=== PATIENT | female | born 1970 | race Caucasian/White ===

== ENCOUNTER 2020-05-26 09:00 | Day surgery (SDC) | payer OTHER ==
[2020-05-26] MEDS ORDERED: Rocuronium Bromide 10 MG/ML (10ML VIAL) ONE (09:18)
[2020-05-26] MEDS ORDERED: Ondansetron PF 4 MG/2 ML Vial ONE (09:18)
[2020-05-26] MEDS ORDERED: PROPOFOL 200 MG/20 ML VIAL ONE (09:18)
[2020-05-26] MEDS ORDERED: ePHEDrine 50 MG/ML VIAL ONE (09:18)
[2020-05-26] MEDS ORDERED: Lidocaine 1% PF 5 ML VIAL ONE (09:18)
[2020-05-26] MEDS ORDERED: Dexamethasone 20 MG/5 ML VIAL ONE (09:18)
[2020-05-26] MEDS ORDERED: Glycopyrrolate 0.2 MG/ML 5 ML SYRINGE ONE (09:18)
[2020-05-26] MEDS ORDERED: Bupivacaine 0.25% HCL 30 ML VIAL ONE (09:24)
[2020-05-26] MEDS ORDERED: XYLOCAINE 2%-EPI 1:100,000 20 ML VIAL ONE (09:24)
[2020-05-26] MEDS ORDERED: Famotidine/PF 20 mg/2ml Vial ONE (09:43)
[2020-05-26] MEDS ORDERED: Scopolamine 1.5 mg/72 hour Patch ONE (09:43)
[2020-05-26] MEDS ORDERED: Ketorolac Tromethamine 30 MG/ML VIAL ONE (09:43)
[2020-05-26] MEDS ORDERED: Midazolam HCl 2 mg/2 ml Vial ONE (09:46)
[2020-05-26] MEDS ORDERED: Fentanyl 100 MCG/2 ML VIAL ONE (09:46)
[2020-05-26] MEDS ORDERED: Dexmedetomidine 200 MCG/2 ML VIAL ONE (09:46)
--- NOTE | 2020-05-26 12:10 | HP ---
HISTORY: A 49-year-old female presents with right lower quadrant pain since , 2 days ago. The patient presents to [facility] emergency room yesterday, undergoing evaluation. White count 7 and hemoglobin 16. Comprehensive metabolic profile unremarkable. Bilirubin 1.5. AST and ALT normal. Alkaline phosphatase 142. Rapid COVID negative. She underwent a CAT scan and a chest x-ray. CAT scan of the abdomen and pelvis at [place] revealed 8 mm appendix, equivocal haziness, possible appendicitis, mild splenomegaly, some fluid-filled loops of small bowel without dilatation, spinal stenosis severe at L4-5. The patient was hospitalized in [place]. I was given the report on telephone that her CAT scan revealed changes of acute appendicitis, not equivocal. The patient on arrival to this facility this morning transferred from [place] reveals that she has had some mild right lower quadrant tenderness and pain and persistent mild tenderness on exam with slight guarding. Personal review of the CAT scan reveals that she has mild constipation, certainly not significant to account for her pain. Plan is for a laparoscopic video appendectomy. She understands the risks and benefits, consents. ALLERGIES: NONE. SOCIAL HISTORY: Tobacco, none. Alcohol, none. PAST SURGICAL HISTORY: Cholecystectomy, bilateral tubal ligation, total abdominal hysterectomy without oophorectomy, abdominal approach, ovarian cystectomy prior. PAST MEDICAL HISTORY: Rhu-[id number]-ulyiereqo diabetes mellitus, on metformin; history of lupus; bipolar illness; anxiety; and fibromyalgia. FAMILY HISTORY: Her father had a heart cardiac murmur. No significant family history. REVIEW OF SYSTEMS: Ten-point review of systems unremarkable. She is , lives with a significant other. PHYSICAL EXAMINATION: VITAL SIGNS: 122/64, 99 degrees, 95%. 95 kg. HEAD, EARS, EYES, NOSE, AND THROAT: Unremarkable. Sclerae nonicteric. Skin nonjaundiced. LUNGS: Clear to auscultation. Neurologically intact. CARDIAC: Regular rate and rhythm without murmur or gallop. ABDOMEN: Soft, obese. No hernias evident. Tenderness in right lower quadrant with mild guarding. EXTREMITIES: No ankle edema. Palpable pulses. No lymphadenopathy. ASSESSMENT AND PLAN: 1. Abdominal pain, suspect appendicitis, equivocal, inflammatory changes on CAT scan with her history and persistent tenderness. We would recommend laparoscopic video appendectomy. Risks and benefits of the procedure and consents obtained. 2. Significant spinal stenosis. She may need to seek outpatient attention to this. 3. Diabetes mellitus. 4. Lupus. 5. Fibromyalgia. 6. Nxk-[id number]-jlkjdgbmr diabetes mellitus. 7. Hypertension. Job ID: [id number]
--- NOTE | 2020-05-27 17:01 | OP ---
DATE OF PROCEDURE: 05/26/2020 PREOPERATIVE DIAGNOSES: 1. Acute appendicitis. 2. Spinal stenosis. POSTOPERATIVE DIAGNOSES: 1. Normal-appearing appendix. 2. Spinal stenosis. PROCEDURE PERFORMED: Laparoscopic video appendectomy. FINDINGS: Laparoscopic evaluation with normal terminal ileum without Meckel's, normal ovaries for age, hysterectomy status, history of cholecystectomy. No gross abnormalities noted. ANESTHESIA: General, local 0.5% Marcaine 30 mL mixed with 1% Xylocaine with epinephrine 20 mL. DESCRIPTION OF PROCEDURE: The patient was taken to the operating room, where under general anesthesia, Kang catheter was placed at the beginning of the procedure and removed at the end. Abdomen was prepared with ChloraPrep and draped in routine fashion. Local anesthetic mixture was infiltrated into the skin and subcutaneous tissue about each port site. Infraumbilical incision made, pneumoperitoneum to 15 mmHg obtained with a Veress needle, replacement with a 5 port laparoscope inserted. Remainder of ports placed under laparoscopic visualization and right lateral subcostal incision was made and a 5 port placed. Suprapubic incision was made and a 12 port placed. Mesoappendix was taken down with the LigaSure. The stump of the appendix divided at the cecal stump with Endo-TARIQ blue load stapler. Cecal stump hemostasis gained with clips. Good hemostasis noted. Appendix removed and submitted to Pathology. Appendix looked to be normal. Terminal ileum evaluated. Meckel diverticulum not present. The patient is status post hysterectomy. Ovaries normal for her age. Tubes normal. History of cholecystectomy. No gross abnormalities noted. Suprapubic fascia was approximated with 0 Vicryl with a GraNee needle under laparoscopic visualization. The irrigant and pneumoperitoneum evacuated. All instruments were removed and all skin incisions were approximated with subdermal 4-0 Monocryl and [place] glue applied. The patient was recommended to seek neurosurgical attention for spinal stenosis. If clinically significant, we will discuss with her and discuss this postoperatively. Job ID: [id number]
== END 2020-05-26 12:40 | disposition home or self-care (01) ==
LOC: SDC 09:00
PROVIDERS: ATTEND Family Medicine
PROC: 0DTJ4ZZ Resection of Appendix, Percutaneous Endoscopic Approach (ICD-10-PCS; principal; 2020-05-26)
DX: K35.80 Unspecified acute appendicitis (principal); M48.00 Spinal stenosis, site unspecified; E11.9 Type 2 diabetes mellitus without complications; I10 Essential (primary) hypertension; M79.7 Fibromyalgia; F41.9 Anxiety disorder, unspecified; F31.9 Bipolar disorder, unspecified; E66.9 Obesity, unspecified; Z68.39 Body mass index [BMI] 39.0-39.9, adult; Z79.84 Long term (current) use of oral hypoglycemic drugs
CPT/HCPCS: 36416; 88304; J1100; J1885; J2250; J2405; J2704; J3010; J3490; S0020; S0028